=== PATIENT | male | born 1940 | race Caucasian/White ===

== ENCOUNTER 2017-07-30 19:11 | Inpatient (IN) | payer OTHER, BC ==
[~2017-07-30] VITALS: Ht 177.8 cm; Wt 90.3 kg
[2017-07-30 19:40] LABS: EOSINOPHIL (%) 1.9 % (0-5); EOSINOPHIL COUNT 0.1 K/uL (0-0.3); HEMATOCRIT 48.7 % (38.0-50.0); IMMATURE GRANULOCYTE (%) 1.6 % (0.0-0.7); IMMATURE GRANULOCYTE COUNT 0.1 K/uL; INSTRUMENT ABS NEUTROPHIL CT 3.8 K/uL; LYMPHOCYTE COUNT 1.8 K/uL (1.0-2.8); MCH 27.8 PG (29.0-34.0); MCHC 32.9 G/DL (30.0-36.0); MCV 84.7 FL (86-99); MEAN PLAT.VOLUME 13.6 uM^3 (9.0-12.4); MONOCYTE (%) 6.1 % (3-12); MONOCYTE COUNT 0.4 K/uL (0-0.8); NEUTROPHIL (%) 61.6 % (45-76); NEUTROPHIL COUNT 3.8 K/uL (1.8-6.4); PLATELET COUNT 106 K/uL (156-360); RBC DIS.WIDTH-CV 12.5 % (11.8-14.6); RBC DIS.WIDTH-SD 38.3 % (39-53); RED BLOOD COUNT 5.75 M/uL (4.00-5.50); WHITE BLOOD COUNT 6.2 K/uL (4.1-10.2)
[2017-07-30 19:56] LABS: AMYLASE 42 IU/L (1-118); CHLORIDE 102 mEq/L (99-109); POTASSIUM 3.2 mEq/L (3.7-5.4); SODIUM 138 mEq/L (136-147)
[2017-07-30 19:58] LABS: GLUCOSE 116 mg/dL (70-99)
[2017-07-30 19:59] LABS: ANION GAP 11 MEQ/L (2-14)
[2017-07-30 20:01] LABS: SERUM ETHYL ALCOHOL < 10 mg/dL
[2017-07-30 20:03] LABS: GFR ESTIMATE (CALCULATED) > 59 mL/min/; UREA NITROGEN (BUN) 14 mg/dL (9-23)
[2017-07-30 20:05] LABS: LIPASE 22 U/L (1.0-51.0)
[2017-07-30 21:30] LABS: TROP-I INTERPRETATION NEGATIVE; TROPONIN-I 0.01 ng/mL (0.0-0.30)
[2017-07-30] MEDS ORDERED: ACCURETIC 201 TABLET PO (21:54)
[2017-07-30] MEDS ORDERED: NEXIUM40 MG PO (21:55)
[2017-07-30 23:01] VITALS: BP 189/91
[2017-07-31 03:14] VITALS: BP 125/86
[2017-07-31 05:39] LABS: HEMATOCRIT 42.2 % (38.0-50.0); MCH 27.9 PG (29.0-34.0); MCHC 33.2 G/DL (30.0-36.0); MCV 84.1 FL (86-99); RBC DIS.WIDTH-SD 37.8 % (39-53); RED BLOOD COUNT 5.02 M/uL (4.00-5.50); WHITE BLOOD COUNT 8.4 K/uL (4.1-10.2)
[2017-07-31 05:40] LABS: PLATELET COUNT 100 K/uL (156-360); RBC DIS.WIDTH-CV 12.5 % (11.8-14.6)
[2017-07-31 06:00] LABS: ALKALINE PHOSPHATASE 50 IU/L (3-129); ANION GAP 7 MEQ/L (2-14); CHLORIDE 103 MEQ/L (99-109); GFR ESTIMATE (CALCULATED) > 59 mL/min/; GLUCOSE 135 mg/dL (70-99); SAMPLE HEMOLYSIS CHECK 0; SAMPLE ICTERIC CHECK 0; SAMPLE LIPEMIA CHECK 0; SODIUM 139 MEQ/L (136-147); TOTAL BILIRUBIN 1.3 MG/DL (0.0-1.0); UREA NITROGEN (BUN) 15 mg/dL (9-23)
[2017-07-31 06:04] LABS: POTASSIUM 3.9 MEQ/L (3.7-5.4)
[2017-07-31 07:33] VITALS: BP 145/83
[2017-07-31 08:21] VITALS: BP 132/80
[2017-07-31 11:07] VITALS: BP 136/86
[2017-07-31 15:32] VITALS: BP 147/77
[2017-07-31 19:32] VITALS: BP 140/81
[2017-08-01 00:24] VITALS: BP 138/78
[2017-08-01 04:00] VITALS: BP 138/81
[2017-08-01 07:40] VITALS: BP 133/79
[2017-08-01 11:31] VITALS: BP 124/68
[2017-08-01] MEDS ORDERED: ENDOCET 5-3251 EACH PO (13:01)
== END 2017-08-01 14:24 | disposition home or self-care (01) | DRG 184 ==
LOC: TRA 19:11 → 4EAST 21:42 → EDOF 21:42 → ENRESERV 21:43 → 4EAST 22:31
PROVIDERS: Emergency Medicine; Surgery
DX: S22.20XA Unspecified fracture of sternum, initial encounter for closed fracture (principal); S22.41XA Multiple fractures of ribs, right side, initial encounter for closed fracture; V43.52XA Car driver injured in collision with other type car in traffic accident, initial encounter; Y92.410 Unspecified street and highway as the place of occurrence of the external cause; F17.290 Nicotine dependence, other tobacco product, uncomplicated; I10 Essential (primary) hypertension; K21.9 Gastro-esophageal reflux disease without esophagitis; M19.90 Unspecified osteoarthritis, unspecified site; M54.9 Dorsalgia, unspecified; Z85.828 Personal history of other malignant neoplasm of skin
CPT/HCPCS: 70450; 71010; 71020; 71260; 72125; 72129; 72132; 74177; 80048; 80053; 81003; 82150; 83690; 84484; 85025; 85027; 86850; 86900; 86901; 93005; 99281; 99285; G0480; J3480